=== PATIENT | male | born 1995 | race Two or more races ===

== ENCOUNTER 2021-10-18 11:27 | Emergency (ER) | payer OTHER ==
[~2021-10-18] VITALS: Ht 182.9 cm; Wt 61.0 kg
[2021-10-18 11:38] VITALS: BP 128/74
[2021-10-18 12:55] LABS: CHLORIDE 106 mEq/L (98-107)
[2021-10-18 13:13] LABS: BASOPHILS % 0.5 % (0.0-2.0); EOSINOPHILS % 4.4 % (0.0-5.0); HEMATOCRIT. 45.4 % (42.0-52.0); HEMOGLOBIN. 15.4 g/dL (14.0-18.0); LYMPHOCYTES % 31.2 % (20.0-50.0); MEAN CORPUSCULAR HEMOGLOBIN 30.6 pg (28.0-32.0); MEAN CORPUSCULAR VOLUME 89.8 fL (80.0-94.0); MEAN PLATELET VOLUME 8.4 fl (7.4-10.4); MONOCYTES % 11.1 % (2.0-8.0); NEUTROPHILS % 52.8 % (40.0-76.0); PLATELET 223 x1000/uL (130-400); RED BLOOD CELL COUNT 5.05 mill/uL (4.7-6.1); RED CELL DISTRIBUTION WIDTH 13.3 % (11.6-14.6)
== END 2021-10-18 14:40 | disposition home or self-care (01) ==
LOC: ER 11:27
DX: K92.1 Melena (principal)
CPT/HCPCS: 36415; 80053; 85025; 86850; 86900; 99283